=== PATIENT | male | born 1990 | race African-American/Black ===

== ENCOUNTER 2017-12-15 15:19 | Emergency (ER) | payer OTHER ==
[2017-12-15] MEDS: NORCO, ANEXSIA 5/325MG TABLET (HYDROcodone/ACETAMINOPHEN) PO (16:46)
== END 2017-12-15 16:50 | disposition home or self-care (01) ==
LOC: M ED 15:19
DX: B35.3 Tinea pedis (principal); M25.571 Pain in right ankle and joints of right foot; M25.572 Pain in left ankle and joints of left foot; F17.210 Nicotine dependence, cigarettes, uncomplicated
CPT/HCPCS: 99282